=== PATIENT | female | born 1960 | race Caucasian/White ===

== ENCOUNTER 2016-03-05 11:37 | Outpatient (CLI) | payer SELFPAY | END 2016-03-05 11:38 | disposition home or self-care (01) | DX: I48.91 Unspecified atrial fibrillation (principal) ==

== ENCOUNTER 2016-03-16 08:55 | Outpatient (CLI) | payer SELFPAY | END 2016-03-16 08:56 | disposition home or self-care (01) | DX: I48.91 Unspecified atrial fibrillation (principal) ==

== ENCOUNTER 2016-04-07 08:44 | Outpatient (CLI) | payer SELFPAY | END 2016-04-07 08:45 | disposition home or self-care (01) | DX: I48.91 Unspecified atrial fibrillation (principal) ==

== ENCOUNTER 2016-04-20 07:41 | Outpatient (CLI) | payer SELFPAY | END 2016-04-20 07:42 | disposition home or self-care (01) | DX: I48.91 Unspecified atrial fibrillation (principal) ==

== ENCOUNTER 2016-05-07 09:28 | Outpatient (CLI) | payer SELFPAY | END 2016-05-07 09:29 | disposition home or self-care (01) | DX: I48.91 Unspecified atrial fibrillation (principal) ==

== ENCOUNTER 2016-05-15 08:41 | Outpatient (CLI) | payer SELFPAY | END 2016-05-15 08:42 | disposition home or self-care (01) | DX: I48.91 Unspecified atrial fibrillation (principal) ==

== ENCOUNTER 2016-06-25 09:21 | Outpatient (CLI) | payer SELFPAY | END 2016-06-25 09:22 | disposition home or self-care (01) | DX: I48.91 Unspecified atrial fibrillation (principal) ==

== ENCOUNTER 2016-07-27 11:09 | Outpatient (CLI) | payer SELFPAY | END 2016-07-27 11:10 | disposition home or self-care (01) | LOC: LAB.F 11:09 | PROVIDERS: ATTEND Physician Assistant | DX: I48.91 Unspecified atrial fibrillation (principal) | CPT/HCPCS: 85610 ==

== ENCOUNTER 2016-08-27 07:35 | Outpatient (CLI) | payer SELFPAY | END 2016-08-27 07:36 | disposition home or self-care (01) | LOC: LAB.F 07:35 | PROVIDERS: ATTEND Physician Assistant | DX: I48.91 Unspecified atrial fibrillation (principal) | CPT/HCPCS: 85610 ==

== ENCOUNTER → 2016-10-12 | Outpatient (CLI) | payer SELFPAY | LOC: LAB.F 08:00 | PROVIDERS: ATTEND Physician Assistant | DX: I48.91 Unspecified atrial fibrillation (principal) | CPT/HCPCS: 85610 ==

== ENCOUNTER 2016-11-12 10:51 | Outpatient (CLI) | payer SELFPAY | END 2016-11-12 10:52 | disposition home or self-care (01) | LOC: LAB.F 10:51 | PROVIDERS: ATTEND Physician Assistant | DX: I48.91 Unspecified atrial fibrillation (principal) | CPT/HCPCS: 85610 ==

== ENCOUNTER 2016-12-17 07:45 | Outpatient (CLI) | payer SELFPAY | END 2016-12-17 07:46 | disposition home or self-care (01) | LOC: LAB.F 07:45 | PROVIDERS: ATTEND Physician Assistant | DX: I48.91 Unspecified atrial fibrillation (principal) | CPT/HCPCS: 85610 ==

== ENCOUNTER 2017-01-21 09:56 | Outpatient (CLI) | payer SELFPAY | END 2017-01-21 09:57 | disposition home or self-care (01) | LOC: LAB.F 09:56 | PROVIDERS: ATTEND Physician Assistant | DX: I48.91 Unspecified atrial fibrillation (principal) | CPT/HCPCS: 85610 ==

== ENCOUNTER 2017-02-10 09:10 | Outpatient (CLI) | payer SELFPAY | END 2017-02-10 09:11 | disposition home or self-care (01) | LOC: LAB.F 09:10 | PROVIDERS: ATTEND Physician Assistant | DX: I48.91 Unspecified atrial fibrillation (principal) | CPT/HCPCS: 85610 ==

== ENCOUNTER 2017-03-05 10:07 | Outpatient (CLI) | payer SELFPAY | END 2017-03-05 10:08 | disposition home or self-care (01) | LOC: LAB.F 10:07 | PROVIDERS: ATTEND Physician Assistant | DX: I48.91 Unspecified atrial fibrillation (principal) | CPT/HCPCS: 85610 ==

== ENCOUNTER 2017-03-12 11:19 | Outpatient (CLI) | payer SELFPAY | END 2017-03-12 11:20 | disposition home or self-care (01) | LOC: LAB.F 11:19 | PROVIDERS: ATTEND Physician Assistant | DX: I48.91 Unspecified atrial fibrillation (principal) | CPT/HCPCS: 85610 ==

== ENCOUNTER 2017-04-15 09:43 | Outpatient (CLI) | payer SELFPAY | END 2017-04-15 09:44 | disposition home or self-care (01) | LOC: LAB.F 09:43 | PROVIDERS: ATTEND Physician Assistant | DX: I48.91 Unspecified atrial fibrillation (principal) | CPT/HCPCS: 85610 ==

== ENCOUNTER 2017-04-26 11:16 | Outpatient (CLI) | payer SELFPAY | END 2017-04-26 11:17 | disposition home or self-care (01) | LOC: LAB.F 11:16 | PROVIDERS: ATTEND Physician Assistant | DX: I48.91 Unspecified atrial fibrillation (principal) | CPT/HCPCS: 85610 ==

== ENCOUNTER 2017-05-11 08:08 | Outpatient (CLI) | payer SELFPAY | END 2017-05-11 08:09 | disposition home or self-care (01) | LOC: LAB.F 08:08 | PROVIDERS: ATTEND Physician Assistant | DX: I48.91 Unspecified atrial fibrillation (principal) | CPT/HCPCS: 85610 ==

== ENCOUNTER 2017-06-07 07:31 | Outpatient (CLI) | payer SELFPAY | END 2017-06-07 07:32 | disposition home or self-care (01) | LOC: LAB.F 07:31 | PROVIDERS: ATTEND Physician Assistant | DX: I48.91 Unspecified atrial fibrillation (principal) | CPT/HCPCS: 85610 ==

== ENCOUNTER 2017-07-13 07:44 | Outpatient (CLI) | payer SELFPAY | END 2017-07-13 07:45 | disposition home or self-care (01) | LOC: LAB.F 07:44 | PROVIDERS: ATTEND Physician Assistant | DX: I48.91 Unspecified atrial fibrillation (principal) | CPT/HCPCS: 85610 ==

== ENCOUNTER 2017-08-09 09:18 | Outpatient (CLI) | payer SELFPAY | END 2017-08-09 09:19 | disposition home or self-care (01) | LOC: LAB.F 09:18 | PROVIDERS: ATTEND Physician Assistant | DX: I48.91 Unspecified atrial fibrillation (principal) | CPT/HCPCS: 85610 ==

== ENCOUNTER 2017-09-16 08:45 | Outpatient (CLI) | payer OTHER | END 2017-09-16 08:46 | disposition home or self-care (01) | LOC: LAB.F 08:45 | PROVIDERS: ATTEND Physician Assistant | DX: I48.91 Unspecified atrial fibrillation (principal) | CPT/HCPCS: 85610 ==

== ENCOUNTER 2017-10-20 08:02 | Outpatient (CLI) | payer OTHER | END 2017-10-20 08:03 | disposition home or self-care (01) | LOC: LAB.F 08:02 | PROVIDERS: ATTEND Physician Assistant | DX: I48.91 Unspecified atrial fibrillation (principal) | CPT/HCPCS: 85610 ==

== ENCOUNTER 2017-11-22 11:01 | Outpatient (CLI) | payer OTHER | END 2017-11-22 11:02 | disposition home or self-care (01) | LOC: LAB.F 11:01 | PROVIDERS: ATTEND Physician Assistant | DX: I48.91 Unspecified atrial fibrillation (principal) ==

== ENCOUNTER 2017-11-24 07:57 | Outpatient (CLI) | payer OTHER | END 2017-11-24 07:58 | disposition home or self-care (01) | LOC: LAB.F 07:57 | PROVIDERS: ATTEND Physician Assistant | DX: I48.91 Unspecified atrial fibrillation (principal) | CPT/HCPCS: 85610 ==

== ENCOUNTER 2018-01-18 07:27 | Outpatient (CLI) | payer OTHER | END 2018-01-18 07:28 | disposition home or self-care (01) | LOC: LAB.F 07:27 | PROVIDERS: ATTEND Physician Assistant | DX: I48.91 Unspecified atrial fibrillation (principal) | CPT/HCPCS: 85610 ==

== ENCOUNTER 2018-02-16 09:21 | Outpatient (CLI) | payer OTHER | END 2018-02-16 09:22 | disposition home or self-care (01) | LOC: LAB.F 09:21 | PROVIDERS: ATTEND Physician Assistant | DX: I48.91 Unspecified atrial fibrillation (principal) | CPT/HCPCS: 85610 ==

== ENCOUNTER 2018-02-22 08:09 | Outpatient (CLI) | payer OTHER | END 2018-02-22 08:10 | disposition home or self-care (01) | LOC: LAB.F 08:09 | PROVIDERS: ATTEND Physician Assistant | DX: I48.91 Unspecified atrial fibrillation (principal) | CPT/HCPCS: 85610 ==